=== PATIENT | female | born 1985 | race Caucasian/White ===

== ENCOUNTER 2023-10-13 14:58 | Outpatient (AMB) | payer BC, SELFPAY ==
--- NOTE | 2023-10-13 14:59 | A.OFFVIS_ITS ---
Vital Signs 10/13/23 15:01 Height 5 ft 1 in Weight 174 lb 2.643 oz BMI 32.9 BP 147/68 H Blood Pressure Location Lt brachial Position Sitting Pulse 98 Intake Visit Reasons: Sm bowel resection HX of perianal abscess Intake Note: Kelsey presents in the office as a new patient for small bowel resection and hx of perianal abscess. CC: She states that she is feeling okay at this time. Denies any irregular bowel movements and no bleeding. 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 IBD Hx: Type: Crohns Location: Small and large bowel Age of onset: 22 y.o Prev medications: Pentasa, Remicade on and off since 2018 Current meds: Inflectra 5mg/kg Colonoscopy: 2013 @ [facility]. 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 Currently: reports no abd pain. Has 1-3 BMs per day, no blood. Occ urgency. Sometimes takes imodium. Sx start flaring q6w. Next Inflectra dose gurinder for November 10. [facility] Surgical History (Updated 10/13/23 @ 15:01 by FARHANA Snyder) Hx of colonoscopy History of esophagogastroduodenoscopy (EGD) Review of Systems Const All systems reviewed & are unremarkable except as noted in HPI and below Physical Exam Vital Signs: Last Vital Signs Pulse 98 10/13/23 15:01 BP 147/68 H 10/13/23 15:01 BMI result Body Mass Index 32.9 No apparent distress Nonicteric Abdomen soft, nondistended Alert and oriented x3, normal gait Assessment & Plan Assessment & Plan (1) Crohn's disease: Code(s): K50.90 - Crohn's disease, unspecified, without complications Category: Medical (2) 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 Check CRP, fecal calpro, Will also need IFX drug and Ab levels at some point- will coordinate these BEFORE next infusion at [facility] (December) Recent admission for SBO ? ileocecal anastomosis narrowing fibrotic vs inflammatory. CTE ordered. Since transferring care, will also get updated TSPOT and hep serologies. * Nutrition: Check iron, B12, folate * Bone health Recent steroid use. Check Vit D. * Health maintenance: IBD dysplasia: due for colo. Msg sent for shceduling. PEG prpe instructions reviewed and sent to pharmacy. Follow up 3 weeks to review results Orders: Orders Comprehensive Met. Panel Today K50.90 - Crohn's disease, unspecified, without complications Vitamin D 25-OH Total Today K50.90 - Crohn's disease, unspecified, without complications IRON PROFILE Today K50.90 - Crohn's disease, unspecified, without complications Hepatitis B Core Antibody Today K50.90 - Crohn's disease, unspecified, without complications Hepatitis B Surface Antibody Today K50.90 - Crohn's disease, unspecified, without complications Hepatitis B Surface Antigen Today K50.90 - Crohn's disease, unspecified, without complications Hepatitis C Antibody Today K50.90 - Crohn's disease, unspecified, without complications CT enterography Today K50.90 - Crohn's disease, unspecified, without complications Complete Blood Count no Diff Today K50.90 - Crohn's disease, unspecified, without complications Calprotectin, Fecal Today K50.90 - Crohn's disease, unspecified, without complications C Reactive Protein Today K50.90 - Crohn's disease, unspecified, without complications Vitamin B12 and Folate Today K50.90 - Crohn's disease, unspecified, without complications Thiopurine Methyltransferase Today K50.90 - Crohn's disease, unspecified, without complications Hepatitis A IgG Today K50.90 - Crohn's disease, unspecified, without complications T Spot TB Today K50.90 - Crohn's disease, unspecified, without complications Medications: New peg 3350-electrolytes 236-22.74-6.74 -5.86 gram (Golytely) as per split prep instructions, until fecal effluent is clear 240 mL PO Q10M 4,000 mL 0RF colonoscopy Coding Level of Care Code New Pt Level 5 (89947) Diagnoses Crohn's disease K50.90 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
[2023-10-13 15:01] VITALS: BP 147/68; PULSE 98; BMI 32.9
== END 2023-10-13 16:49 | disposition home or self-care (01) ==
PROVIDERS: PCP Physician Assistant; Visit Provider Internal Medicine
DX: K50.90 Crohn's disease, unspecified, without complications (principal); K91.89 Other postprocedural complications and disorders of digestive system
CPT/HCPCS: 99204

== ENCOUNTER → 2023-10-13 14:58 | Outpatient (BNVA) | payer BC, SELFPAY | PROVIDERS: PCP Physician Assistant; Visit Provider Internal Medicine ==

== ENCOUNTER 2023-11-03 14:01 | Outpatient (AMB) | payer BC, SELFPAY ==
--- NOTE | 2023-11-03 14:02 | MHC.OFFVIS ---
Intake Visit Reasons: Follow up 3 weeks Intake Note: Kelsey presents as a 3 week follow up. CC: spoke with insurance regarding inflectra. She verified that she is approved up until Jun - PARDEEP Code: [id number] Heel Curver Required: No Allergies Penicillins Allergy (Mild, Verified 11/03/23 14:02) Unknown HPI Comments Details: 38 y.o F with PMH of crohns of small bowel who is here for follow up. IBD Hx: Type: Crohns Location: Small and large bowel Age of onset: 22 y.o Prev medications: Pentasa, Remicade on and off since 2018 Current meds: Inflectra 5mg/kg Colonoscopy: 2013 @ [facility]. 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 Currently: reports no abd pain. Has 1-3 BMs per day, no blood. Occ urgency. Sometimes takes imodium. Sx start flaring q6w. Next Inflectra dose gurinder for November 10. 11/03/23: Here for tele visit. Unfortunately [facility] not covered for infusions. Also has a copay for labs at this facility. Offered home infusions but reports has looked into these before and was quoted a $8k/y out of pocket. Labs results from lab [facility] reviewed, low Vit D. Fecal calpro pending. [facility] Surgical History (Updated 10/13/23 @ 15:01 by FARHANA Snyder) Hx of colonoscopy History of esophagogastroduodenoscopy (EGD) Review of Systems Const All systems reviewed & are unremarkable except as noted in HPI and below Physical Exam Vital Signs: video visit NAD speaking in full sentences no dysarthria Assessment & Plan Assessment & Plan (1) Crohn's disease: Code(s): K50.90 - Crohn's disease, unspecified, without complications Category: Medical Plan unfortunately this facility is not in network for her infusions. She was encouraged to establish care with a GI locally who is able to cont infusions at the current office site ([facility]). She was also encouraged to get a copy of her labs shruthi at [facility] so she can provide it to her new GI. In terms of CTE, this was left to her discretion to proceed with it vs hold off until established with a different provider as also has an OOP as per her report. For colo - pt reports completely covered and she'd like to get this done here, currently booked for Feb. She will call us if she changes her mind. Future follow up canceled as above. Coding Level of Care Code Tele Est Pt Level 3 (46215) Diagnoses Crohn's disease K50.90
== END 2023-11-03 16:20 | disposition home or self-care (01) ==
LOC: HO.HGI 14:02
PROVIDERS: PCP Physician Assistant; Visit Provider Internal Medicine
DX: K50.90 Crohn's disease, unspecified, without complications (principal)
CPT/HCPCS: 99213; 99442

== ENCOUNTER → 2023-11-03 14:01 | Outpatient (BNVA) | payer BC, SELFPAY | PROVIDERS: PCP Physician Assistant; Visit Provider Internal Medicine ==